=== PATIENT | female | born 1965 | race Caucasian/White ===

== ENCOUNTER 2020-12-02 10:56 | Emergency (ER) | payer OTHER, SELFPAY ==
[2020-12-02 11:03] VITALS: BP 177/90; PULSE 94; RESP 18; TEMP 37.1; O2SAT 99
--- NOTE | 2020-12-02 11:03 | ED.NAVMDI ---
HPI - Nausea/Vomiting/Diarrhea General Chief complaint: Nausea/Vomiting/Diarrhea Stated complaint: nausea Time Seen by Provider: 12/02/20 11:03 Source: patient and RN notes reviewed History of Present Illness HPI Narrative: Patient is a 55-year-old female who presents the urgent care with complaints of nausea and vomiting since . Patient states that she thought it was due to increased stress having to take care of her 4 grandchildren under 11 . Patient states that she is also had some increased thirst and urination and does have diabetes that runs in the family. Patient states that she took 1 dose of nausea medication and then vomited. Patient denies of any fevers or abdominal pain. Denies of diarrhea. States that she has been passing gas and making normal bowel movements. Denies of any urinary urgency or dysuria. No other acute complaints. No acute distress noted. Patient aware of the plan of care. Some parts of this dictation were generated by voice recognition software and may contain typographical and/or grammatical inaccuracies. Related Data Home Medications Medication Instructions Recorded Confirmed No Home Medications 12/02/20 12/02/20 Allergies Allergy/AdvReac Type Severity Reaction Status Date / Time aspirin Allergy Unknown RASH Verified 12/02/20 11:14 Review of Systems Review of Systems: Narrative: CONSTITUTIONAL: Denies fever, chills, or sweats. EYES: Denies visual changes, redness, or discharge. ENT: Denies rhinorrhea, congestion, sore throat, or otalgia. CARDIOVASCULAR: Denies chest pain, palpitations, or edema. RESPIRATORY: Denies cough or dyspnea. GASTROINTESTINAL: Reports of nausea and vomiting without diarrhea or abdominal pain GENITOURINARY: Reports of urinary frequency SKIN: Denies rash or itching. MUSCULOSKELETAL: Denies back pain, joint pain, or myalgia. NEUROLOGIC: Denies headache, numbness, or weakness. All other systems reviewed are negative, except as documented in HPI. PMFSH Comments At the time of my signature, I reviewed and agree with the nursing past medical, surgical, social, and family history. There is no relevant family history pertinent to the patient complaint. Exam Narrative: Exam Narrative: GENERAL: This is a well-nourished, well-developed patient, slightly diaphoretic HEAD: normocephalic, atraumatic. EYES: PERRL. Sclera clear/white. Vision is grossly intact. EARS: External ears normal NOSE: External nose normal with no obvious nasal discharge, nares without redness, no rhinorrhea. THROAT: Mucous membranes moist, posterior pharynx clear. NECK: Neck supple CARDIOVASCULAR: Regular rate and rhythm without murmurs, gallops, or rubs. RESPIRATORY: Clear to auscultation. Breath sounds equal bilaterally. No wheezes, rales, or rhonchi. GASTROINTESTINAL: Abdomen soft, nondistended. Bowel sounds are active. No guarding. SKIN: warm, intact with no suspicious lesions or rash, good texture and turgor. NEURO: awake, alert, and oriented to person, place and time. There were no obvious focal neurologic abnormalities. EXTREMITIES: No clubbing, cyanosis, or edema. BACK: Negative CVA tenderness Course Vital Signs Vital signs: Vital Signs Temperature 98.7 F 12/02/20 11:03 Pulse Rate 94 12/02/20 11:03 Respiratory Rate 18 12/02/20 11:03 Blood Pressure 177/90 H 12/02/20 11:03 Pulse Oximetry 99 12/02/20 11:03 Temperature 98.7 F 12/02/20 11:03 Pulse Rate 94 12/02/20 11:03 Respiratory Rate 18 12/02/20 11:03 Blood Pressure 177/90 H 12/02/20 11:03 Pulse Oximetry 99 12/02/20 11:03 Reviewed-patient is informed that they may have pre-hypertension or hypertension based on a blood pressure reading in the department. I recommend the patient call the primary care provider listed on their discharge instructions or a physician of their choice this week to arrange follow-up for further evaluation of possible pre-hypertension or hypertension. Is about the las
[2020-12-02 11:13] LABS: Glucose Point of Care > 500 mg/dl (65-105)
== END 2020-12-02 11:20 | disposition short-term general hospital (02) ==
PROVIDERS: Emergency Provider Nurse Practitioner Family
DX: R73.9 Hyperglycemia, unspecified (principal)
CPT/HCPCS: 82948; 99212; G0463